=== PATIENT | female | born 1985 | race Caucasian/White ===

== ENCOUNTER 2023-08-07 10:55 | Emergency (ER) | payer MEDICAID, OTHER ==
[~2023-08-07] VITALS: Ht 157.5 cm; Wt 56.8 kg
[2023-08-07 11:01] VITALS: BP 145/90; PULSE 86; RESP 20; TEMP 98.3; O2SAT 100
[2023-08-07] MEDS ORDERED: CYCL-1 PO (12:45)
[2023-08-07] MEDS ORDERED: NAPR-56 PO (12:45)
[2023-08-07] MEDS ORDERED: ketorolac trometh inj. 60 MG/2 ML VIAL IM ONE (12:45)
== END 2023-08-07 13:12 | disposition home or self-care (01) ==
LOC: ER 10:55
DX: M54.2 Cervicalgia (principal); M54.9 Dorsalgia, unspecified; Z88.0 Allergy status to penicillin
CPT/HCPCS: 96372; 99283; J1885